=== PATIENT | female | born 1965 ===

== ENCOUNTER 2018-01-31 11:00 | Emergency (ER) | payer OTHER ==
[2018-01-31 11:24] VITALS: PULSE 58; O2SAT 96
--- NOTE | 2018-01-31 13:55 | CT ---
PROCEDURE: CT HEAD WITHOUT CONTRAST. HISTORY: Headache, sinus pain, left eye pain COMPARISON: None available. TECHNIQUE: Axial computed tomography images were obtained through the head/brain without intravenous contrast. Radiation dose: Total exam DLP = 866.08 mGy-cm. This CT exam was performed using one or more of the following dose reduction techniques: Automated exposure control, adjustment of the mA and/or kV according to patient size, and/or use of iterative reconstruction technique. FINDINGS: HEMORRHAGE: No intracranial hemorrhage. BRAIN: Corona-white matter differentiation is preserved. There is no mass, mass effect or abnormal extra-axial fluid collection. VENTRICLES: The ventricles are normal in size, shape and configuration. CALVARIUM: The skull base and calvarium are normal. PARANASAL SINUSES: There is fluid in the left maxillary sinus. The remaining included paranasal sinuses are predominantly clear. MASTOID AIR CELLS: Predominantly clear. OTHER FINDINGS: None. IMPRESSION: No acute intracranial abnormality. Fluid in the left maxillary sinus may represent acute sinusitis in the appropriate clinical setting. Clinical correlation and follow-up is advised.
--- NOTE | 2018-01-31 14:06 | C.PDOC ---
History Of Present Illness 52 year old female with no significant PMH presents to ED with complaints of 3 day history of headache and cough with associated chest discomfort. She describes pain as pressure like to frontal head area, feels fullness to left ear and has yellow nasal mucus. She reports having left eye redness itching, tearing and irritation. She has been taking Advil and Claritin with minimal relief. She also reports throat discomfort, scratchy sensation which goes into her chest and non-productive cough. Denies any fever, dizziness, nausea, or vomiting. Time Seen by Provider: 01/31/18 11:59 Chief Complaint (Nursing): Headache History Per: Patient History/Exam Limitations: no limitations Onset/Duration Of Symptoms: Days (3) Current Symptoms Are (Timing): Still Present Quality: Aching, Pressure Additional History Per: Patient Past Medical History Reviewed: Historical Data, Nursing Documentation, Vital Signs Vital Signs: Last Vital Signs Temp 98.0 F 01/31/18 14:44 Pulse 58 L 01/31/18 14:44 Resp 20 01/31/18 14:44 BP 130/70 01/31/18 14:44 Pulse Ox 96 01/31/18 16:37 - Medical History PMH: Bronchitis (4 YEARS AGO) Surgical History: Cholecystectomy, Endoscopy, Tonsillectomy Family History: States: Unknown Family Hx - Social History Hx Tobacco Use: No Hx Alcohol Use: No Hx Substance Use: No - Immunization History Hx Tetanus Toxoid Vaccination: No (unsure) Hx Influenza Vaccination: No Hx Pneumococcal Vaccination: Yes Review Of Systems Constitutional: Negative for: Fever, Chills Eyes: Positive for: Redness (left eye ) ENT: Positive for: Ear Pain (left ), Other (throat discomfort ) Cardiovascular: Positive for: Other (chest discomfort ) Respiratory: Positive for: Cough. Negative for: Sputum Gastrointestinal: Negative for: Nausea, Vomiting Neurological: Positive for: Headache. Negative for: Dizziness Physical Exam - Physical Exam Appears: Non-toxic, No Acute Distress Skin: Normal Color, Warm, Dry Head: Atraumatic, Tenderness (left maxillary sinus ) Eye(s): bilateral: Normal Inspection, Other (no conjunctival injection, discharge, foreign body, or eyelid edema ) Ear(s): Bilateral: TM Dull Oral Mucosa: Moist Neck: Normal ROM, Supple Chest: Symmetrical, No Deformity, No Tenderness Cardiovascular: Rhythm Regular, No Murmur Respiratory: Normal Breath Sounds, No Rales, No Rhonchi, No Wheezing Extremity: Normal ROM, Capillary Refill (less than 2 seconds ) Neurological/Psych: Oriented x3, Normal Speech, Normal Cognition Gait: Steady ED Course And Treatment ECG: Interpreted By Me, Viewed By Me ECG Rhythm: Sinus Rhythm Interpretation Of ECG: EKG NS at 60 bpm with normal axis and sinus arrhythmia Rate From EC O2 Sat by Pulse Oximetry: 96 (on RA ) Pulse Ox Interpretation: Normal - Other Rad CXR X-Ray: Interpreted by Me, Viewed By Me, Read By Radiologist Interpretation: PROCEDURE: CT HEAD WITHOUT CONTRAST. HISTORY: Headache, sinus pain, left eye pain. COMPARISON: None available. TECHNIQUE: Axial computed tomography images were obtained through the head/brain without intravenous contrast. Radiation dose: Total exam DLP = 866.08 mGy-cm. This CT exam was performed using one or more of the following dose reduction techniques: Automated exposure control, adjustment of the mA and/or kV according to patient size, and/or use of iterative reconstruction technique. FINDINGS: HEMORRHAGE: No intracranial hemorrhage. BRAIN: Corona-white matter differentiation is preserved. There is no mass, mass effect or abnormal extra- axial fluid collection. VENTRICLES: The ventricles are normal in size, shape and configuration. CALVARIUM: The skull base and calvarium are normal. PARANASAL SINUSES: There is fluid in the left maxillary sinus. The remaining included paranasal sinuses are predominantly clear. MASTOID AIR CELLS: Predominantly clear. OTHER FINDINGS: None. IMPRESSION: No acute intracranial abnormality. Fluid in the left maxillary sinus may represent acute sinusitis in the appropriate clinical setting. Clinical correlation and follow-up is advised. - CT Scan/US CT Head Other Rad Studies (CT/US): Interpreted By Me, Read By Radiologist, Radiology Report Reviewed CT/US Interpretation: PROCEDURE: CT HEAD WITHOUT CONTRAST. HISTORY: Headache , sinus pain, left eye pain. COMPARISON: None available. TECHNIQUE: Axial computed tomography images were obtained through the head/brain without intravenous contrast. Radiation dose: Total exam DLP = 866.08 mGy-cm. This CT exam was performed using one or more of the following dose reduction techniques: Automated exposure control, adjustment of the mA and/or kV according to patient size, and/or use of iterative reconstruction technique. FINDINGS: HEMORRHAGE: No intracranial hemorrhage. BRAIN: Corona-white matter differentiation is preserved. There is no mass, mass effect or abnormal extra- axial fluid collection. VENTRICLES: The ventricles are normal in size, shape and configuration. CALVARIUM: The skull base and calvarium are normal. PARANASAL SINUSES: There is fluid in the left maxillary sinus. The remaining included paranasal sinuses are predominantly clear. MASTOID AIR CELLS: Predominantly clear. OTHER FINDINGS: None. IMPRESSION: No acute intracranial abnormality. Fluid in the left maxillary sinus may represent acute sinusitis in the appropriate clinical setting. Clinical correlation and follow-up is advised. Medical Decision Making Medical Decision Making: Patient with complaints of headache and multiple other symptoms. Appears well nontoxic and in no acute distress. EKG obtained during triage with no acute ischemic changse. Plan is to order CT head and CXR. Treat with Sudafed PO. CXR shows no active disease. CT reviewed showing Fluid in the left maxillary sinus which may represent acute sinusitis. In this clinical setting acute sinusitis is appropriate diagnosis and will treat. Patient re-evaluated and remains afebrile alert and oriented. I explained results to patient. She feels comfortable going home and will be discharged with Rx. Patient advised to follow up in the clinic. Disposition Counseled Patient/Family Regarding: Studies Performed, Need For Followup, Rx Given - Disposition Referrals: Eliza Pelayo MD [Staff Provider] - Disposition: HOME/ ROUTINE Disposition Time: 14:30 Condition: GOOD Additional Instructions: Take antibiotic as indicated for sinus infection Take daily allergy medicine, can also try nasal spray such as Flonase Take Sudafed or Mucinex as decongestant follow up with the clinic for further evaluation Prescriptions: Doxycycline Hyclate 100 mg PO BID #20 capsule Instructions: Sinusitis, Adult (DC) Forms: [employer] (Occitan) Print Language: KAZAKH - POA Present On Arrival: None - Clinical Impression Clinical Impression: Sinusitis - PA / GASOLINE 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 - Scribe Statement The provider has reviewed the documentation as recorded by the Scribe (Sydnie Santillan) All medical record entries made by the Scribe were at my direction and personally dictated by me. I have reviewed the chart and agree that the record accurately reflects my personal performance of the history, physical exam, medical decision making, and the department course for this patient. I have also personally directed, reviewed, and agree with the discharge instructions and disposition.
--- NOTE | 2018-01-31 14:10 | RAD ---
HISTORY: COMPARISON: 11/11/2016. TECHNIQUE: Chest PA and lateral FINDINGS: LINES AND TUBES: None. LUNG AND PLEURA: The lungs are well inflated and clear. HEART AND MEDIASTINUM: The heart is not enlarged. The hilar and mediastinal contours are within normal limits. SKELETAL STRUCTURES: The bony structures are within normal limits for the patient's age. VISUALIZED UPPER ABDOMEN: Normal. OTHER FINDINGS: None. IMPRESSION: No active pulmonary disease.
[2018-01-31 14:49] VITALS: BP 130/70; RESP 20; TEMP 98
--- NOTE | 2018-02-01 23:26 | CARD ---
APPROVED REPORT EKG Measurement Heart [id number] <Conclusion> Normal sinus rhythm with sinus arrhythmia Normal ECG
== END 2018-01-31 14:44 | disposition home or self-care (01) ==
LOC: C.ER 11:00
DX: J32.9 Chronic sinusitis, unspecified (principal)

== ENCOUNTER 2018-09-20 15:45 | Observation (INO) | payer OTHER ==
--- NOTE | 2018-09-20 16:51 | C.PDOC ---
History Of Present Illness 52 year old female with a hx of hyperlipidemia and pre-diabetic presents to the ED for evaluation of chest pain and dizziness associated with light headedness that began 1 day ago. Denies fever, nausea, vomiting, syncope, and any other associated symptoms. Time Seen by Provider: 09/20/18 16:33 Chief Complaint (Nursing): Chest Pain History Per: Patient History/Exam Limitations: no limitations Onset/Duration Of Symptoms: Days (1 day ago.) Current Symptoms Are (Timing): Still Present Past Medical History Reviewed: Historical Data, Nursing Documentation, Vital Signs Vital Signs: Last Vital Signs Temp 97.7 F 09/20/18 15:56 Pulse 59 L 09/20/18 15:56 Resp 18 09/20/18 15:56 BP 133/68 09/20/18 15:56 Pulse Ox 100 09/20/18 15:56 - Medical History PMH: Bronchitis (4 YEARS AGO) Surgical History: Cholecystectomy, Endoscopy, Tonsillectomy Family History: States: Unknown Family Hx - Social History Hx Tobacco Use: No Hx Alcohol Use: No Hx Substance Use: No - Immunization History Hx Tetanus Toxoid Vaccination: No (unsure) Hx Influenza Vaccination: No Hx Pneumococcal Vaccination: Yes Review Of Systems Constitutional: Negative for: Fever Cardiovascular: Positive for: Chest Pain, Light Headedness Gastrointestinal: Negative for: Nausea, Vomiting Neurological: Positive for: Dizziness, Other (syncope.) Physical Exam - Physical Exam Appears: Well, Non-toxic, No Acute Distress, Other (moderately obese.) Skin: Normal Color, Warm, Dry Head: Atraumatic, Normacephalic Eye(s): bilateral: Normal Inspection Oral Mucosa: Moist Neck: Normal ROM Chest: Symmetrical, No Deformity Cardiovascular: Rhythm Regular, No Murmur Respiratory: Normal Breath Sounds, No Rales, No Rhonchi, No Wheezing Gastrointestinal/Abdominal: Normal Exam, Soft, No Tenderness Neurological/Psych: Oriented x3, Normal Speech ED Course And Treatment - Laboratory Results Result Diagrams: 09/21/18 07:39 09/21/18 07:39 ECG Rhythm: Sinus Bradycardia Rate From EC O2 Sat by Pulse Oximetry: 100 (RA) Pulse Ox Interpretation: Normal - Other Rad CXR X-Ray: Viewed By Me, Read By Radiologist Interpretation: FINDINGS: LUNGS: Clear. PLEURA: No pneumothorax or pleural fluid seen. CARDIOVASCULAR: Normal. OSSEOUS STRUCTURES: No significant abno rmalities. VISUALIZED UPPER ABDOMEN: Normal. OTHER FINDINGS: None. IMPRESSION: No active disease. Medical Decision Making Medical Decision Making: Plan: -EKG -Blood sent. -CXR -Urine HCG -Urinalysis labs cxr neg. pt with risk factors obs for cp. accepted hospitalist. Disposition - Disposition Disposition: HOSPITALIZED Disposition Time: 17:00 Condition: STABLE - Clinical Impression Clinical Impression: Chest pain - Scribe Statement The provider has reviewed the documentation as recorded by the Scribe (Genevieve Zaman) Provider Attestation: All medical record entries made by the Scribe were at my direction and personally dictated by me. I have reviewed the chart and agree that the record accurately reflects my personal performance of the history, physical exam, medical decision making, and the department course for this patient. I have also personally directed, reviewed, and agree with the discharge instructions and disposition. Decision To Admit - Pt Status Changed To: Hospital Disposition Of: Observation - . Bed Request Type: Telemetry Admitting Physician: Kashif Riley Patient Diagnosis: Chest pain
--- NOTE | 2018-09-20 16:58 | RAD ---
Date of service: 09/20/2018 PROCEDURE: CHEST RADIOGRAPH, 1 VIEW HISTORY: chest pain COMPARISON: 01/31/2018 FINDINGS: LUNGS: Clear. PLEURA: No pneumothorax or pleural fluid seen. CARDIOVASCULAR: Normal. OSSEOUS STRUCTURES: No significant abnormalities. VISUALIZED UPPER ABDOMEN: Normal. OTHER FINDINGS: None. IMPRESSION: No active disease.
[2018-09-20 18:27] LABS: RBC 4.91 Mil/uL (3.80-5.20); WHITE BLOOD COUNT 10.2 K/uL (4.8-10.8)
[2018-09-20 18:28] LABS: BASO # 0.1 K/uL (0.0-0.2); BASO % 0.6 % (0.0-2.0); EOS # 0.3 K/uL (0.0-0.7); EOS % 3.1 % (0.0-4.0); HEMOGLOBIN 13.8 g/dL (11.0-16.0); LYMPH # 4.2 K/uL (1.0-4.3); LYMPH % 40.8 % (20.0-40.0); MEAN CORPUSCULAR HEMOGLOBIN 28.2 pg (27.0-31.0); MONO # 0.6 K/uL (0.0-0.8); MONO % 5.8 % (0.0-10.0); NEUT # 5.1 K/uL (1.8-7.0); NEUT % 49.7 % (50.0-75.0); RED CELL DISTRIBUTION WIDTH 13.6 % (11.5-14.5)
[2018-09-20 18:37] LABS: PROTHROMBIN TIME 11.4 SECONDS (9.7-12.2)
[2018-09-20 18:42] LABS: ALB/GLOB RATIO 1.2 (1.0-2.1); ALBUMIN 4.5 g/dL (3.5-5.0); ALT/SGPT 22 U/L (9-52); AST/SGOT 26 U/L (14-36); BLOOD UREA NITROGEN 10 mg/dL (7-17); CALCIUM 9.8 mg/dl (8.6-10.4); GFR NON-AFRICAN AMERICAN > 60
[2018-09-20 18:54] LABS: B-TYPE NATRIURETIC PEPTIDE 123 pg/mL (0-900)
[2018-09-20 18:56] LABS: URINE BACTERIA RARE (<OCC); URINE BILIRUBIN NEGATIVE (NEGATIVE); URINE BLOOD NEGATIVE (NEGATIVE); URINE CLARITY Clear (Clear); URINE COLOR Straw (YELLOW); URINE GLUCOSE (UA) NORMAL (Normal); URINE LEUKOCYTE ESTERASE TRACE Leu/uL (Negative); URINE PROTEIN NEGATIVE (NEGATIVE); URINE UROBILINOGEN NORMAL mg/dL (0.2-1.0)
[2018-09-20 18:57] LABS: HCG,QUALITATIVE URINE NEGATIVE (NEGATIVE)
[2018-09-20 20:39] VITALS: RESP 20
[2018-09-20] MEDS ORDERED: Rosuvastatin Calcium 2.5 mg Tab PO SCH (22:00)
--- NOTE | 2018-09-20 22:09 | CP.PCM.HP ---
<Catherine Plasencia P - Last Filed: 09/21/18 10:55> History of Present Illness - History of Present Illness History of Present Illness: H&P for hospitalist service. HPI: 52 year old female with PMHx of impaired glucose tolerance, and hypercholesterolemia presents to the ED complaining of 7/10 left sided chest pain for the past 3-4 days. Pain is described as pressure and worsens with bending over and with exertion. States this has never happened before. Patient also complains of shortness of breath, diaphoresis, neck pain, frontal headache, dizziness, slow heart rate, sensation of inflammation to the ears and buzzing in the ears. Patient denies fever, chills, nausea, vomiting, abdominal pain, and cough. PMHx: impaired glucose tolerance, hypercholesterolemia, retinal degeneration, dry eyes PSHx: cholecystectomy, tonsillectomy, hemmorroid, b/l foot surgery Meds: Zocor 20mg HS, Refresh eye drops Allergies: PCN, unknown reaction Family: Mother-[place] at 68 years old, Father-HTN, glaucoma Social: denies tobacco, alcohol, drugs. 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 Lives with her 12 year old son. Code status: full Proxy: Candida Locke, friend, Present on Admission - Present on Admission Any Indicators Present on Admission: No Review of Systems - Constitutional Constitutional: Headache. absent: Chills, Fever - EENT Eyes: absent: Discharge, Pain Ears: Dizziness, Other (wax) Nose/Mouth/Throat: Neck Pain. absent: Dysphagia, Sore Throat - Cardiovascular Cardiovascular: Chest Pain, Diaphoresis, Slow Heart Rate. absent: Edema, Palpitations - Respiratory Respiratory: Dyspnea. absent: Cough, Hemoptysis - Gastrointestinal Gastrointestinal: absent: Abdominal Pain, Constipation, Diarrhea, Dysphagia, Heartburn, Nausea, Vomiting - Genitourinary Genitourinary: absent: Difficulty Urinating, Dysuria, Flank Pain, Hematuria - Musculoskeletal Musculoskeletal: Neck Pain, Other (chest pain). absent: Joint Swelling - Integumentary Integumentary: absent: Rash, Swelling, Unusual Bruising, Wounds - Neurological Neurological: Dizziness, Headaches. absent: Burning Sensations, Convulsions, Disequilibrium, Focal Weakness, Paresthesias Past Patient History - Infectious Disease Hx of Infectious Diseases: None - Past Medical History & Family History Past Medical History?: Yes - Past Social History Smoking Status: Never Smoked - PULMONARY Hx Bronchitis: Yes (4 YEARS AGO) - ENDOCRINE/METABOLIC Other/Comment: "pre diabetic" - MUSCULOSKELETAL/RHEUMATOLOGICAL Hx Musculoskeletal Disorders: Yes (BUNION/HAMMERTOES RIGHT FOOT) - GASTROINTESTINAL Hx Gastrointestinal Disorders: Yes Hx Gastroesophageal Reflux: Yes - PSYCHIATRIC Hx Substance Use: No - SURGICAL HISTORY Hx Cholecystectomy: Yes Hx Tonsillectomy: Yes - ANESTHESIA Hx Anesthesia: Yes Hx Anesthesia Reactions: Yes (NAUSEA) Hx Malignant Hyperthermia: No Meds Allergies/Adverse Reactions: Allergies Allergy/AdvReac Type Severity Reaction Status Date / Time Penicillins Allergy Intermediate RASH Verified 01/31/18 11:24 Physical Exam - Constitutional Appears: Non-toxic, No Acute Distress - Head Exam Head Exam: ATRAUMATIC, NORMOCEPHALIC - Eye Exam Eye Exam: EOMI, Normal appearance, PERRL - ENT Exam ENT Exam: Mucous Membranes Moist, TM's Normal Bilaterally - Neck Exam Neck exam: Positive for: Full Rom, Normal Inspection, Tenderness (to palpation of paracervical muscles) - Respiratory Exam Respiratory Exam: Clear to Auscultation Bilateral. absent: Rales, Rhonchi, Wheezes - Cardiovascular Exam Cardiovascular Exam: Bradycardia, +S1, +S2. absent: Systolic Murmur Additional comments: Reproducible chest pain with palpation. - GI/Abdominal Exam GI & Abdominal Exam: Guarding, Normal Bowel Sounds, Soft. absent: Rebound, Rigid, Tenderness - Extremities Exam Extremities exam: Positive for: full ROM, normal capillary refill, normal inspection, pedal pulses present. Negative for: calf tenderness, pedal edema, tenderness - Neurological Exam Neurological exam: Alert, CN II-XII Intact, Oriented x3 - Psychiatric Exam Psychiatric exam: Normal Affect, Normal Mood - Skin Skin Exam: Dry, Intact, Normal Color, Warm Results - Vital Signs Recent Vital Signs: Last Vital Signs Temp 98.1 F 09/20/18 20:20 Pulse 62 09/20/18 21:37 Resp 20 09/20/18 20:20 BP 135/80 09/20/18 20:20 Pulse Ox 97 09/20/18 20:20 - Labs Result Diagrams: 09/21/18 07:39 09/21/18 07:39 Labs: Laboratory Results - last 24 hr 09/20/18 09/20/18 09/20/18 18:23 18:23 18:23 WBC 10.2 RBC 4.91 Hgb 13.8 Hct 40.7 MCV 83.0 MCH 28.2 MCHC 34.0 RDW 13.6 Plt Count 409 H MPV 8.0 Neut % (Auto) 49.7 L Lymph % (Auto) 40.8 H Gibson % (Auto) 5.8 Eos % (Auto) 3.1 Baso % (Auto) 0.6 Neut # (Auto) 5.1 Lymph # (Auto) 4.2 Gibson # (Auto) 0.6 Eos # (Auto) 0.3 Baso # (Auto) 0.1 PT 11.4 INR 1.0 APTT 34 Sodium 141 Potassium 3.7 Chloride 105 Carbon Dioxide 27 Anion Gap 13 BUN 10 Creatinine 0.8 Est GFR ( Amer) > 60 Est GFR (Non-Af Amer) > 60 Random Glucose 98 Calcium 9.8 Total Bilirubin 0.6 AST 26 ALT 22 Alkaline Phosphatase 103 Troponin I < 0.0120 NT-Pro-B Natriuret Pep 123 Total Protein 8.2 Albumin 4.5 Globulin 3.7 Albumin/Globulin Ratio 1.2 Urine Color Urine Clarity Urine pH Ur Specific [place] Urine Protein Urine Glucose (UA) Urine Ketones Urine Blood Urine Nitrate Urine Bilirubin Urine Urobilinogen Ur Leukocyte Esterase Urine WBC (Auto) Urine Bacteria Urine HCG, Qual 09/20/18 18:43 WBC RBC Hgb Hct MCV MCH MCHC RDW Plt Count MPV Neut % (Auto) Lymph % (Auto) Gibson % (Auto) Eos % (Auto) Baso % (Auto) Neut # (Auto) Lymph # (Auto) Gibson # (Auto) Eos # (Auto) Baso # (Auto) PT INR APTT Sodium Potassium Chloride Carbon Dioxide Anion Gap BUN Creatinine Est GFR ( Amer) Est GFR (Non-Af Amer) Random Glucose Calcium Total Bilirubin AST ALT Alkaline Phosphatase Troponin I NT-Pro-B Natriuret Pep Total Protein Albumin Globulin Albumin/Globulin Ratio Urine Color Straw Urine Clarity Clear Urine pH 6.0 Ur Specific [place] 1.005 Urine Protein Negative Urine Glucose (UA) Normal Urine Ketones Negative Urine Blood Negative Urine Nitrate Negative Urine Bilirubin Negative Urine Urobilinogen Normal Ur Leukocyte Esterase Trace Urine WBC (Auto) 2 Urine Bacteria Rare Urine HCG, Qual Negative Assessment & Plan - Assessment and Plan (Free Text) Plan: 52 year old female with PMHx of impaired glucose tolerance, HLD admitted for evaluation of chest pain. Chest pain rule out ACS Possible symptomatic bradycardia -EKG: Sinus bradycardia at 56bpm, f/u serial EKGs -Troponin negx1, f/u serial ROMIs -f/u lipid panel -f/u hgb A1c -f/u TSH -Start Aspirin 81mg daily -f/u echo -Cardiology, Dr. Mason Santillan consulted. Help appreciated. Hyperlipidemia -f/u lipid panel -Crestor 2.5mg PO HS (substitute for home med of Zocor 20mg HS) Impaired glucose tolerance -f/u hgb A1c Xerophthalmia -Refresh eye drops (home med) Prophylaxis -SCD -Heparin 5000 Q8H -GI prophylaxis not indicated Case discussed with attending physician, Dr. Canada. <Bob Canada - Last Filed: 09/23/18 19:05> Results - Vital Signs Recent Vital Signs: Last Vital Signs Temp 98.6 F 09/21/18 15:09 Pulse 50 L 09/21/18 15:09 Resp 20 09/21/18 15:09 BP 102/63 09/21/18 15:09 Pulse Ox 96 09/21/18 15:09 - Labs Result Diagrams: 09/21/18 07:39 09/21/18 07:39 Assessment & Plan - Date & Time Date: 09/23/18 (I have seen and examined the patient. I agree with the findings and plan of care as documented by Dr. Plasencia. Patient with chest pain. Bradycardia. Monitor on tele. Aspirin and Statin. ROMIx3 with EKG. Monitor for acute changes.) Time: 19:04 Attending/Attestation - Attestation I have personally seen and examined this patient.: Yes I have fully participated in the care of the patient.: Yes I have reviewed all pertinent clinical information: Yes
[2018-09-21 04:58] LABS: CK-MB < 0.22 ng/mL (0.0-3.38)
--- NOTE | 2018-09-21 07:40 | CP.PCM.PN ---
Subjective - Date & Time of Evaluation Date of Evaluation: 09/21/18 Time of Evaluation: 07:39 - Subjective Subjective: Progress note for Hospitalist service Patient seen and examined at bedside. She states she is does not have any chest pain anymore, however states she feels chest pain if she presses her chest. She admits she has a constant buzzing feeling in her left ear associated with dizziness that is worse when she bends over for the past 3 to 4 days. She admits to mild shortness of breath along with mild neck pain. She states she was told she had low pulse when she had surgery about 2 years ago. Objective - Vital Signs/Intake and Output Vital Signs (last 24 hours): Temp Pulse Resp BP Pulse Ox 98.3 F 55 L 20 111/68 96 09/20/18 23:10 09/21/18 01:00 09/20/18 23:10 09/20/18 23:10 09/20/18 23:10 - Medications Medications: Current Medications Artificial Tears (Refresh Opth Soln) 0.1 ml OU DAILY [facility] Aspirin (Aspirin Chewable) 81 mg PO DAILY [facility] Heparin Sodium (Porcine) (Heparin) 5,000 units SC Q8 [facility] Last Admin: 09/21/18 05:37 Dose: 5,000 units Rosuvastatin Calcium (Crestor) 2.5 mg PO HS [facility] Last Admin: 09/20/18 21:17 Dose: 2.5 mg - Labs Labs: 09/20/18 18:23 09/20/18 18:23 PT 11.4 SECONDS (9.7-12.2) 09/20/18 18:23 INR 1.0 09/20/18 18:23 APTT 34 SECONDS (21-34) 09/20/18 18:23 - Constitutional Appears: Well, No Acute Distress - Head Exam Head Exam: ATRAUMATIC, NORMOCEPHALIC - Eye Exam Eye Exam: EOMI - ENT Exam ENT Exam: Mucous Membranes Moist - Respiratory Exam Respiratory Exam: Clear to Ausculation Bilateral. absent: Decreased Breath Sounds, Rales, Rhonchi, Wheezes, Respiratory Distress, Stridor - Cardiovascular Exam Cardiovascular Exam: Bradycardia, +S1, +S2 - GI/Abdominal Exam GI & Abdominal Exam: Soft, Normal Bowel Sounds. absent: Guarding, Rigid, Tenderness - Extremities Exam Extremities Exam: Normal Capillary Refill. absent: Calf Tenderness, Pedal Edema - Back Exam Back Exam: absent: CVA tenderness (L), CVA tenderness (R) - Neurological Exam Neurological Exam: Alert, Awake, Oriented x3 Assessment and Plan - Assessment and Plan (Free Text) Plan: Assessment 52 year old female with PMHx of impaired glucose tolerance, HLD admitted for evaluation of chest pain. Plan Chest pain rule out ACS Possible symptomatic bradycardia EKG sinus bradycardia at 56 Trops neg x3 CXR no acute disease ECHO: prelim negative Cardio Dr. Javier consulted, help appreciated Lipid panel: TG 209 Chol 209 LDL 133 HDL 37
[2018-09-21 07:59] LABS: BASO % 0.6 % (0.0-2.0); EOS # 0.3 K/uL (0.0-0.7); EOS % 4.2 % (0.0-4.0); HEMOGLOBIN 12.9 g/dL (11.0-16.0); LYMPH # 3.4 K/uL (1.0-4.3); LYMPH % 46.2 % (20.0-40.0); MEAN CELL VOLUME 82.9 fL (81.0-99.0); MEAN CORPUSCULAR HEMOGLOBIN 28.7 pg (27.0-31.0); MEAN CORPUSCULAR HGB CONC 34.6 g/dL (33.0-37.0); MEAN PLATELET VOLUME 8.4 fL (7.2-11.7); MONO # 0.4 K/uL (0.0-0.8); MONO % 5.9 % (0.0-10.0); NEUT # 3.2 K/uL (1.8-7.0); NEUT % 43.1 % (50.0-75.0); NRBC % 0.1 % (0.0-2.0); RBC 4.48 Mil/uL (3.80-5.20); RED CELL DISTRIBUTION WIDTH 13.6 % (11.5-14.5); WHITE BLOOD COUNT 7.4 K/uL (4.8-10.8)
[2018-09-21 08:35] LABS: ALB/GLOB RATIO 1.3 (1.0-2.1); ALT/SGPT 21 U/L (9-52); AST/SGOT 26 U/L (14-36); BLOOD UREA NITROGEN 10 mg/dL (7-17); CALCIUM 9.5 mg/dl (8.6-10.4); GFR NON-AFRICAN AMERICAN > 60; HDL CHOLESTEROL 37 mg/dL (30-70)
[2018-09-21 08:37] LABS: CK-MB < 0.22 ng/mL (0.0-3.38)
--- NOTE | 2018-09-21 08:41 | CP.PCM.CON ---
History of Present Illness - History of Present Illness History of Present Illness: Prakash Amaya, PGY-[address] Javier, Cardiology CC: Chest Pressure, Bradycardia Ms. Lopez is a pleasant 52 F with PMHx of impaired glucose tolerance, hypercholesterolemia on Zocor and bilateral foot surgery for hammer toes who presents with a 4 day history of L sided substernal chest pressure. Patient reports 7/10 dull pain at its worst, currently down to a 4/10 with residual pressure sensations with radiation into posterior neck. Patient describes pain as exacerbated with exertion. Patient states she feels associated unsteadiness and headaches off and on for a while, but has never persisted like it has prior to this admission. Patient reports that on a hospitalization before her foot surgery, she was told that her heart rate is often low and should be evaluated. Patient reports a prior exercise stress test and echocardiogram performed 4-5 years ago at this institution, which she reports as normal. No records have been found of such tests in the EMR. Family history is significant for an MS in her mother at 68 and HTN in her father. Denies tobacco use. Past Patient History - Infectious Disease Hx of Infectious Diseases: None - Past Medical History & Family History Past Medical History?: Yes - Past Social History Smoking Status: Never Smoked - PULMONARY Hx Bronchitis: Yes (4 YEARS AGO) - ENDOCRINE/METABOLIC Other/Comment: "pre diabetic" - MUSCULOSKELETAL/RHEUMATOLOGICAL Hx Musculoskeletal Disorders: Yes (BUNION/HAMMERTOES RIGHT FOOT) - GASTROINTESTINAL Hx Gastrointestinal Disorders: Yes Hx Gastroesophageal Reflux: Yes - PSYCHIATRIC Hx Substance Use: No - SURGICAL HISTORY Hx Cholecystectomy: Yes Hx Tonsillectomy: Yes - ANESTHESIA Hx Anesthesia: Yes Hx Anesthesia Reactions: Yes (NAUSEA) Hx Malignant Hyperthermia: No Meds Allergies/Adverse Reactions: Allergies Allergy/AdvReac Type Severity Reaction Status Date / Time Penicillins Allergy Intermediate RASH Verified 01/31/18 11:24 - Medications Medications: Current Medications Acetaminophen (Tylenol 325mg Tab) 650 mg PO Q6 PRN PRN Reason: Headache Artificial Tears (Refresh Opth Soln) 0.1 ml OU DAILY MARIELA Aspirin (Aspirin Chewable) 81 mg PO DAILY MARIELA Heparin Sodium (Porcine) (Heparin) 5,000 units SC Q8 MARIELA Last Admin: 09/21/18 05:37 Dose: 5,000 units Rosuvastatin Calcium (Crestor) 2.5 mg PO HS MARIELA Last Admin: 09/20/18 21:17 Dose: 2.5 mg Physical Exam - Constitutional Appears: Well, Non-toxic, No Acute Distress - Head Exam Head Exam: ATRAUMATIC, NORMOCEPHALIC - Eye Exam Eye Exam: EOMI, Normal appearance Pupil Exam: PERRL - Neck Exam Neck exam: Positive for: Full Rom, Tenderness (TTP posterior neck) - Respiratory Exam Respiratory Exam: Chest Wall Tenderness (TTP at sites of reported pressure), Clear to Auscultation Bilateral, NORMAL BREATHING PATTERN. absent: Accessory Muscle Use, Decreased Breath Sounds, Rales, Rhonchi, Wheezes - Cardiovascular Exam Cardiovascular Exam: Bradycardia, REGULAR RHYTHM, +S1, +S2 - GI/Abdominal Exam GI & Abdominal Exam: Soft. absent: Distended, Guarding, Tenderness - Neurological Exam Neurological exam: Alert, Oriented x3 - Skin Skin Exam: Dry, Intact, Normal Color, Warm Results - Vital Signs Recent Vital Signs: Last Vital Signs Temp 99.0 F 09/21/18 08:23 Pulse 57 L 09/21/18 08:23 Resp 20 09/21/18 08:23 BP 103/67 09/21/18 08:23 Pulse Ox 96 09/21/18 08:23 - Labs Result Diagrams: 09/21/18 07:39 09/21/18 07:39 Labs: Laboratory Results - last 24 hr 09/20/18 09/20/18 09/20/18 18:23 18:23 18:23 WBC 10.2 RBC 4.91 Hgb 13.8 Hct 40.7 MCV 83.0 MCH 28.2 MCHC 34.0 RDW 13.6 Plt Count 409 H MPV 8.0 Neut % (Auto) 49.7 L Lymph % (Auto) 40.8 H [place] % (Auto) 5.8 Eos % (Auto) 3.1 Baso % (Auto) 0.6 Neut # (Auto) 5.1 Lymph # (Auto) 4.2 [place] # (Auto) 0.6 Eos # (Auto) 0.3 Baso # (Auto) 0.1 PT 11.4 INR 1.0 APTT 34 Sodium 141 Potassium 3.7 Chloride 105 Carbon Dioxide 27 Anion Gap 13 BUN 10 Creatinine 0.8 Est GFR ( Amer) > 60 Est GFR (Non-Af Amer) > 60 Random Glucose 98 Hemoglobin A1c Calcium 9.8 Phosphorus Magnesium Total Bilirubin 0.6 AST 26 ALT 22 Alkaline Phosphatase 103 Total Creatine Kinase CK-MB (Mass) Troponin I < 0.0120 NT-Pro-B Natriuret Pep 123 Total Protein 8.2 Albumin 4.5 Globulin 3.7 Albumin/Globulin Ratio 1.2 Triglycerides Cholesterol HDL Cholesterol Urine Color Urine Clarity Urine pH Ur Specific [place] Urine Protein Urine Glucose (UA) Urine Ketones Urine Blood Urine Nitrate Urine Bilirubin Urine Urobilinogen Ur Leukocyte Esterase Urine WBC (Auto) Urine Bacteria Urine HCG, Qual 09/20/18 09/21/18 09/21/18 18:43 01:41 07:39 WBC 7.4 RBC 4.48 Hgb 12.9 Hct 37.1 MCV 82.9 MCH 28.7 MCHC 34.6 RDW 13.6 Plt Count 378 MPV 8.4 Neut % (Auto) 43.1 L Lymph % (Auto) 46.2 H [place] % (Auto) 5.9 Eos % (Auto) 4.2 H Baso % (Auto) 0.6 Neut # (Auto) 3.2 Lymph # (Auto) 3.4 [place] # (Auto) 0.4 Eos # (Auto) 0.3 Baso # (Auto) 0.0 PT INR APTT Sodium Potassium Chloride Carbon Dioxide Anion Gap BUN Creatinine Est GFR ( Amer) Est GFR (Non-Af Amer) Random Glucose Hemoglobin A1c Calcium Phosphorus Magnesium Total Bilirubin AST ALT Alkaline Phosphatase Total Creatine Kinase < 20 L CK-MB (Mass) < 0.22 Troponin I < 0.0120 NT-Pro-B Natriuret Pep Total Protein Albumin Globulin Albumin/Globulin Ratio Triglycerides Cholesterol HDL Cholesterol Urine Color Straw Urine Clarity Clear Urine pH 6.0 Ur Specific [place] 1.005 Urine Protein Negative Urine Glucose (UA) Normal Urine Ketones Negative Urine Blood Negative Urine Nitrate Negative Urine Bilirubin Negative Urine Urobilinogen Normal Ur Leukocyte Esterase Trace Urine WBC (Auto) 2 Urine Bacteria Rare Urine HCG, Qual Negative 09/21/18 09/21/18 09/21/18 07:39 07:39 07:39 WBC RBC Hgb Hct MCV MCH MCHC RDW Plt Count MPV Neut % (Auto) Lymph % (Auto) [place] % (Auto) Eos % (Auto) Baso % (Auto) Neut # (Auto) Lymph # (Auto) [place] # (Auto) Eos # (Auto) Baso # (Auto) PT INR APTT Sodium 140 Potassium 4.1 Chloride 107 Carbon Dioxide 26 Anion Gap 11 BUN 10 Creatinine 0.8 Est GFR ( Amer) > 60 Est GFR (Non-Af Amer) > 60 Random Glucose 97 Hemoglobin A1c 5.8 Calcium 9.5 Phosphorus 3.9 Magnesium 2.3 Total Bilirubin 0.9 AST 26 ALT 21 Alkaline Phosphatase 114 Total Creatine Kinase < 20 L CK-MB (Mass) < 0.22 Troponin I < 0.0120 NT-Pro-B Natriuret Pep Total Protein 7.2 Albumin 4.0 Globulin 3.1 Albumin/Globulin Ratio 1.3 Triglycerides 209 H Cholesterol 209 H HDL Cholesterol 37 Urine Color Urine Clarity Urine pH Ur Specific [place] Urine Protein Urine Glucose (UA) Urine Ketones Urine Blood Urine Nitrate Urine Bilirubin Urine Urobilinogen Ur Leukocyte Esterase Urine WBC (Auto) Urine Bacteria Urine HCG, Qual Assessment & Plan - Assessment and Plan (Free Text) Assessment: Ms. Lopez is a pleasant 52 F with HLD and glucose intolerance who presents with pleuritic chest pressure that is exacerbated by palpation. Currently on observation. Chest pain rule out ACS, Costochondritis - EKG: Sinus bradycardia, currently at 61 bpm on tele monitor - TTP on upper chest - proBNP 123 - Troponin neg x3 - Aspirin 81mg daily - Echo this morning was normal on prelim read, no obvious deformities. F/u final read - Heparin SC - F/u ESR, CRP, viral titers for possible viral etiology of chostochondritis - Zithromax x 5 days for atypical viruses and its anti-inflammatory properties - OK for discharge on Zithromax, plan to follow up in [place] office Hypercholesterolemia - Improved from 03/01 - LDL 133, total 209 - Crestor 2.5mg PO HS Patient seen, case reviewed with Dr. Javier. Further recommendations per Dr. Javier. Prakash Amaya, PGY-1
[2018-09-21 08:46] LABS: LDL CHOLESTEROL 133 mg/dL (0-129)
[2018-09-21] MEDS ORDERED: Lubricant Eye Drops UD OU SCH (10:00)
--- NOTE | 2018-09-21 16:43 | CP.PCM.DIS ---
Provider - Provider Date of Admission: 09/20/18 18:57 Attending physician: Kashif Riley MD Primary care physician: Dr. Pelayo Consults: Dr. Javier Time Spent in preparation of Discharge (in minutes): 35 Hospital Course - Lab Results Lab Results: Most Recent Lab Values WBC 7.4 K/uL (4.8-10.8) 09/21/18 07:39 RBC 4.48 Mil/uL (3.80-5.20) 09/21/18 07:39 Hgb 12.9 g/dL (11.0-16.0) 09/21/18 07:39 Hct 37.1 % (34.0-47.0) 09/21/18 07:39 MCV 82.9 fL (81.0-99.0) 09/21/18 07:39 MCH 28.7 pg (27.0-31.0) 09/21/18 07:39 MCHC 34.6 g/dL (33.0-37.0) 09/21/18 07:39 RDW 13.6 % (11.5-14.5) 09/21/18 07:39 Plt Count 378 K/uL (130-400) 09/21/18 07:39 MPV 8.4 fL (7.2-11.7) 09/21/18 07:39 Neut % (Auto) 43.1 % (50.0-75.0) L 09/21/18 07:39 Lymph % (Auto) 46.2 % (20.0-40.0) H 09/21/18 07:39 [place] % (Auto) 5.9 % (0.0-10.0) 09/21/18 07:39 Eos % (Auto) 4.2 % (0.0-4.0) H 09/21/18 07:39 Baso % (Auto) 0.6 % (0.0-2.0) 09/21/18 07:39 Neut # (Auto) 3.2 K/uL (1.8-7.0) 09/21/18 07:39 Lymph # (Auto) 3.4 K/uL (1.0-4.3) 09/21/18 07:39 [place] # (Auto) 0.4 K/uL (0.0-0.8) 09/21/18 07:39 Eos # (Auto) 0.3 K/uL (0.0-0.7) 09/21/18 07:39 Baso # (Auto) 0.0 K/uL (0.0-0.2) 09/21/18 07:39 ESR 70 mm/hr (0-20) H 09/21/18 07:39 PT 11.4 SECONDS (9.7-12.2) 09/20/18 18:23 INR 1.0 09/20/18 18:23 APTT 34 SECONDS (21-34) 09/20/18 18:23 Sodium 140 mmol/L (132-148) 09/21/18 07:39 Potassium 4.1 mmol/L (3.6-5.2) 09/21/18 07:39 Chloride 107 mmol/L (98-107) 09/21/18 07:39 Carbon Dioxide 26 mmol/L (22-30) 09/21/18 07:39 Anion Gap 11 (10-20) 09/21/18 07:39 BUN 10 mg/dL (7-17) 09/21/18 07:39 Creatinine 0.8 mg/dL (0.7-1.2) 09/21/18 07:39 Est GFR ( Amer) > 60 09/21/18 07:39 Est GFR (Non-Af Amer) > 60 09/21/18 07:39 Random Glucose 97 mg/dL (65-105) 09/21/18 07:39 Hemoglobin A1c 5.8 % (4.2-6.5) 09/21/18 07:39 Calcium 9.5 mg/dl (8.6-10.4) 09/21/18 07:39 Phosphorus 3.9 mg/dL (2.5-4.5) 09/21/18 07:39 Magnesium 2.3 mg/dL (1.6-2.3) 09/21/18 07:39 Total Bilirubin 0.9 mg/dL (0.2-1.3) 09/21/18 07:39 AST 26 U/L (14-36) 09/21/18 07:39 ALT 21 U/L (9-52) 09/21/18 07:39 Alkaline Phosphatase 114 U/L (38-126) 09/21/18 07:39 Total Creatine Kinase < 20 U/L (30-135) L 09/21/18 07:39 CK-MB (Mass) < 0.22 ng/mL (0.0-3.38) 09/21/18 07:39 Troponin I < 0.0120 ng/mL (0.00-0.120) 09/21/18 07:39 C-React Prot High Sens 4.58 mg/L (1.00-3.00) H 09/21/18 13:57 NT-Pro-B Natriuret Pep 123 pg/mL (0-900) 09/20/18 18:23 Total Protein 7.2 g/dL (6.3-8.3) 09/21/18 07:39 Albumin 4.0 g/dL (3.5-5.0) 09/21/18 07:39 Globulin 3.1 gm/dL (2.2-3.9) 09/21/18 07:39 Albumin/Globulin Ratio 1.3 (1.0-2.1) 09/21/18 07:39 Triglycerides 209 mg/dL (0-149) H 09/21/18 07:39 Cholesterol 209 mg/dL (0-199) H 09/21/18 07:39 LDL Cholesterol Direct 133 mg/dL (0-129) H 09/21/18 07:39 HDL Cholesterol 37 mg/dL (30-70) 09/21/18 07:39 TSH 3rd Generation 3.93 mIU/L (0.46-4.68) 09/21/18 07:39 Urine Color Straw (YELLOW) 09/20/18 18:43 Urine Clarity Clear (Clear) 09/20/18 18:43 Urine pH 6.0 (5.0-8.0) 09/20/18 18:43 Ur Specific [place] 1.005 (1.003-1.030) 09/20/18 18:43 Urine Protein Negative mg/dL (NEGATIVE) 09/20/18 18:43 Urine Glucose (UA) Normal mg/dL (Normal) 09/20/18 18:43 Urine Ketones Negative mg/dL (NEGATIVE) 09/20/18 18:43 Urine Blood Negative (NEGATIVE) 09/20/18 18:43 Urine Nitrate Negative (NEGATIVE) 09/20/18 18:43 Urine Bilirubin Negative (NEGATIVE) 09/20/18 18:43 Urine Urobilinogen Normal mg/dL (0.2-1.0) 09/20/18 18:43 Ur Leukocyte Esterase Trace Todd/uL (Negative) 09/20/18 18:43 Urine WBC (Auto) 2 /hpf (0-5) 18 18:43 Urine Bacteria Rare (<OCC) 09/20/18 18:43 Urine HCG, Qual Negative (NEGATIVE) 09/20/18 18:43 - Hospital Course Hospital Course: On admission: HPI: 52 year old female with PMHx of impaired glucose tolerance, and hypercholesterolemia presents to the ED complaining of 7/10 left sided chest pain for the past 3-4 days. Pain is described as pressure and worsens with bending over and with exertion. States this has never happened before. Patient also complains of shortness of breath, diaphoresis, neck pain, frontal headache, dizziness, slow heart rate, sensation of inflammation to the ears and buzzing in the ears. Patient denies fever, chills, nausea, vomiting, abdominal pain, and cough. Hospital course: Patient was admitted for chest pain to evaluate for acute coronary syndrome. Cardiology Dr. Javier was consulted who evaluated patient. Serial troponins were negative. Serial EKGs revealed sinus bradycardia. Preliminary ECHO read was normal with no obvious deformities. Lipid panel revealed elevated triglycerides at 209, elevated cholesterol at 209, LDL at 133, HDL 37, TSH 3.93. ProBNP was normal at 123. AST/ALT levels were within normal limits. Inflammatory markers ESR noted to be 70, CRP 4.58. Patient was treated with ASA and Crestor. Patient stated that her chest pain had resolved, and was only present on palpation. She admits to history of vertigo in the past for which she was treated with unknown medication. She states that her dizziness and buzzing in her ears is worse when she bends over. Upon discharge, patient states she no longer has any chest pain and feels comfortable going home. Discharge summary: Follow up with [facility] in 2-3 weeks for further follow up. You have elevated levels of ESR and CRP. Please follow up in the clinic for referral to Rheumatology. Continue your home medications Zocor 20mg by mouth at night for your elevated cholesterol levels. Please return to the ED if you have chest pain, shortness of breath, palpitations. Script: Zithromax 250mg by mouth for 5 days. Disp # 5 (five) Discharge Exam - Head Exam Head Exam: ATRAUMATIC, NORMOCEPHALIC - Eye Exam Eye Exam: EOMI - ENT Exam ENT Exam: Mucous Membranes Moist - Neck Exam Neck exam: Full Rom - Respiratory Exam Respiratory Exam: Clear to PA & Lateral. absent: Rales, Rhonchi, Wheezes, Respiratory Distress, Stridor - Cardiovascular Exam Cardiovascular Exam: Bradycardia, +S1, +S2. absent: Gallop, JVD, Rubs, Systolic Murmur Additional comments: tender to palpation along anterior chest - GI/Abdominal Exam GI & Abdominal Exam: Normal Bowel Sounds, Soft. absent: Distended, Firm, Guarding, Hernia, Tenderness - Extremities Exam Extremities exam: normal capillary refill, pedal pulses present Additional comments: no calf tenderness, no pedal edema. - Back Exam Back exam: absent: CVA tenderness (L), CVA tenderness (R) - Neurological Exam Neurological exam: Alert, Oriented x3 - Skin Skin Exam: Dry, Intact, Warm Discharge Plan - Discharge Medications Prescriptions: Azithromycin [Zithromax] 250 mg PO DAILY #5 tab - Follow Up Plan Condition: STABLE Disposition: HOME/ ROUTINE Instructions: Heart Healthy Diet, Chest Pain (DC), Costochondritis (DC) Additional Instructions: Follow up with [facility] clinic in 2-3 weeks for further follow up. You have elevated levels of ESR and CRP. Please follow up in the clinic for referral to Rheumatology. Continue your home medications Zocor 20mg by mouth at night for your elevated cholesterol levels. Please return to the ED if you have chest pain, shortness of breath, palpitations. Script: Zithromax 250mg by mouth for 5 days. Disp # 5 (five) Referrals: Lb Javier MD [Staff Provider] -
[2018-09-21 17:10] VITALS: BP 102/63; PULSE 50; TEMP 98.6; O2SAT 96
[2018-09-21] MEDS ORDERED: Pneumococcal 23-Valent Vaccine IM ONE (17:18)
[2018-09-21] MEDS ORDERED: Influenza Vaccine 60 MCG/0.5 ML SYR (3 yr & up) IM ONE (17:19)
--- NOTE | 2018-09-21 21:43 | CARD ---
APPROVED REPORT Date of service: 09/20/2018 EKG Measurement Heart [id number] <Conclusion> Sinus bradycardia Otherwise normal ECG
[2018-09-22] MEDS ORDERED: Influenza Vaccine 60 MCG/0.5 ML SYR (3 yr & up) IM ONE (12:00)
[2018-09-22] MEDS ORDERED: Pneumococcal 23-Valent Vaccine IM ONE (12:00)
== END 2018-09-21 18:21 | disposition home or self-care (01) ==
LOC: C.ER 15:45 → C.6T 18:57
PROVIDERS: ADMIT Internal Medicine; ATTEND Internal Medicine
DX: R07.9 Chest pain, unspecified (principal); E78.00 Pure hypercholesterolemia, unspecified; E78.5 Hyperlipidemia, unspecified; E50.7 Other ocular manifestations of vitamin A deficiency; E78.1 Pure hyperglyceridemia; K21.9 Gastro-esophageal reflux disease without esophagitis; Z79.82 Long term (current) use of aspirin; Z82.49 Family history of ischemic heart disease and other diseases of the circulatory system; Z90.49 Acquired absence of other specified parts of digestive tract; Z23 Encounter for immunization
CPT/HCPCS: 36415; 71045; 80053; 80061; 81001; 83036; 83735; 83880; 84100; 84443; 84484; 84703; 85025; 85610; 85651; 85730; 86140; 86658; 86663; 87807; 90471; 90674; 90732; 93005; 93306; 96372; 99285; G0378; J1644

== ENCOUNTER 2018-09-24 18:55 | Emergency (ER) | payer OTHER ==
[2018-09-24 19:01] VITALS: O2SAT 99
--- NOTE | 2018-09-24 19:25 | C.PDOC ---
- HPI Chief Complaint (Nursing): Trauma Past Medical History Vital Signs: Last Vital Signs Temp 97.9 F 09/24/18 18:58 Pulse 60 09/24/18 18:58 Resp 18 09/24/18 18:58 BP 164/86 H 09/24/18 18:58 Pulse Ox 99 09/24/18 18:58 - Medical History PMH: Bronchitis (4 YEARS AGO) Surgical History: Cholecystectomy, Endoscopy, Tonsillectomy Family History: States: Unknown Family Hx - Social History Hx Tobacco Use: No Hx Alcohol Use: No Hx Substance Use: No - Immunization History Hx Tetanus Toxoid Vaccination: No (unsure) Hx Influenza Vaccination: No Hx Pneumococcal Vaccination: Yes ED Course And Treatment O2 Sat by Pulse Oximetry: 99 Disposition - Disposition
--- NOTE | 2018-09-24 19:27 | C.PDOC ---
History Of Present Illness 52 year old female presents to the ED complaining of left shoulder pain status post fall in the tub approximately 6 hours ago. Denies any LOC or any other injuries. Contrary to triage, no deformity noted to left shoulder. Denies any weakness, numbness, or tingling. - HPI Chief Complaint (Nursing): Trauma History Per: Patient History/Exam Limitations: no limitations Onset/Duration Of Symptoms: Hrs Injury Occurred (Timing): Hours Ago: (6) Location Of Injury: Left: Shoulder - Fall Fall:Prior To Injury: Slipped Past Medical History Reviewed: Historical Data, Nursing Documentation, Vital Signs Vital Signs: Last Vital Signs Temp 97.9 F 09/24/18 18:58 Pulse 60 09/24/18 18:58 Resp 18 09/24/18 18:58 BP 164/86 H 09/24/18 18:58 Pulse Ox 99 09/24/18 18:58 - Medical History PMH: Bronchitis (4 YEARS AGO) Surgical History: Cholecystectomy, Endoscopy, Tonsillectomy Family History: States: No Known Family Hx - Social History Hx Tobacco Use: No Hx Alcohol Use: No Hx Substance Use: No - Immunization History Hx Tetanus Toxoid Vaccination: No (unsure) Hx Influenza Vaccination: No Hx Pneumococcal Vaccination: Yes Review Of Systems Except As Marked, All Systems Reviewed And Found Negative. Musculoskeletal: Positive for: Shoulder Pain (left) Neurological: Negative for: Weakness, Numbness Physical Exam - Physical Exam Appears: Non-toxic, No Acute Distress Skin: Warm, Dry, No Rash Head: Atraumatic, Normacephalic, No Laceration Eye(s): bilateral: Normal Inspection Neck: Normal ROM, Supple Chest: Symmetrical Cardiovascular: Rhythm Regular Respiratory: Normal Breath Sounds, No Rales, No Rhonchi, No Wheezing Extremity: No Normal ROM (limited due to pain to left shoulder ), Tenderness (tenderness to left humerus and upper shoulder area), No Deformity, No Swelling, No Other (erythema, flattening of shoulder ) Extremity: Left: Limited ROM To Joint, Bilateral: Normal Color And Temperature Neurological/Psych: Oriented x3, Normal Speech, Normal Cognition, Normal Motor, Normal Sensation, Normal Reflexes Gait: Steady ED Course And Treatment O2 Sat by Pulse Oximetry: 99 (RA) Pulse Ox Interpretation: Normal - Other Rad left shoulder X-Ray: Interpreted by Me Interpretation: fracture lateral left clavicle. Medical Decision Making Medical Decision Making: Plan - Toradol 30mg IM - XR Left humerus - XR left shoulder Disposition - Disposition Referrals: [facility] [Outside] Jorge Reid III, MD [Staff Provider] - Disposition: HOME/ ROUTINE Disposition Time: 18:50 Condition: STABLE Prescriptions: traMADol/Acetaminophen [Ultracet 325 MG-37.5 MG] 1 tab PO Q4 #14 tab Instructions: Clavicle Fracture (DC), How to Use a Shoulder Sling Forms: Gen Discharge Inst Welsh, [id number] (Greenlandic) Print Language: MONGOLIAN - POA Present On Arrival: None - Clinical Impression Clinical Impression: Clavicular fracture - Scribe Statement The provider has reviewed the documentation as recorded by the Scribe Karime Berg All medical record entries made by the Shariibe were at my direction and personally dictated by me. I have reviewed the chart and agree that the record accurately reflects my personal performance of the history, physical exam, medical decision making, and the department course for this patient. I have also personally directed, reviewed, and agree with the discharge instructions and disposition.
[2018-09-24 20:22] VITALS: BP 145/88; PULSE 84; RESP 14; TEMP 98
--- NOTE | 2018-09-25 10:42 | RAD ---
Date of service: 09/24/2018 PROCEDURE: < injury > HISTORY: injury COMPARISON: No prior. FINDINGS: BONES: Bone alignment and mineralization are normal. There is no acute displaced fracture or bone destruction. JOINTS: The glenohumeral and acromioclavicular joints are preserved. No significant degenerative osteoarthrosis. SOFT TISSUES: Normal. OTHER FINDINGS: None. IMPRESSION: No acute displaced fracture or dislocation.
--- NOTE | 2018-09-25 10:43 | RAD ---
PROCEDURE: Radiographs of the left humerus. HISTORY: injury COMPARISON: None. FINDINGS: BONES: Bone alignment and mineralization are normal. There is no acute displaced fracture or bone destruction. SOFT TISSUES: Normal. OTHER FINDINGS: None. IMPRESSION: No acute fracture or dislocation.
== END 2018-09-24 20:22 | disposition home or self-care (01) ==
LOC: C.ER 18:55
DX: S42.002A Fracture of unspecified part of left clavicle, initial encounter for closed fracture (principal); W18.30XA Fall on same level, unspecified, initial encounter
CPT/HCPCS: 73030; 73060; 96372; 99284; J1885